=== PATIENT | male | born 1960 | race Caucasian/White ===

== ENCOUNTER 2017-11-11 19:28 | Inpatient (IN) | payer OTHER, MEDICARE ==
[~2017-11-11] VITALS: Ht 170.2 cm; Wt 169.2 kg
[~2017-11-11 19:28] MED LIST: ALBU18; SINGULAIR
[2017-11-11] MEDS ORDERED: FUROSEMIDE INJECTION 10 ML ONE (19:46)
[2017-11-11] MEDS ORDERED: methylPREDNISolone SOD SUCC 125 MG/2 ML VL ONE (19:46)
[2017-11-11] MEDS ORDERED: IPRATROPIUM BROM 0.5 MG/2.5ML INH SOL NEB ONE (20:00)
[2017-11-11] MEDS ORDERED: cefTRIAXone 1GM/10ml IVPUSH 10 ML IV ONE (20:00)
[2017-11-11] MEDS ORDERED: methylPREDNISolone SOD SUCC 125 MG/2 ML VL IV ONE (20:00)
[2017-11-11] MEDS ORDERED: ALBUTEROL SULF 2.5 MG/0.5ML(0.5%) NEB SOLN NEB ONE (20:00)
[2017-11-11] MEDS ORDERED: FUROSEMIDE 20 MG/2 ML VIAL IV ONE (20:00)
[2017-11-11] MEDS ORDERED: LABETALOL HCL 5 MG/ML ML 20ML VIAL IV ONE (20:15)
[2017-11-11 20:21] LABS: Basophils # (auto) 0.1 uL; Basophils % (auto) 0.3 % (0.0-2.0); Eosinophils # (auto) 0.3 uL; Hematocrit 45.6 % (41.0-53.0); Hemoglobin 14.4 g/dL (13.5-17.5); Lymphocytes # (auto) 2.2 uL; Lymphocytes % (auto) 13.5 % (10.0-50.0); Mean Corpuscular Hemoglobin 29.3 pg (28.0-32.0); Mean Corpuscular Hgb Conc. 31.6 g/dL (32.0-36.0); Mean Corpuscular Volume 92.6 fL (80.0-100.0); Monocytes # (auto) 2.6 uL; Monocytes % (auto) 15.8 % (0.0-12.0); Neutrophils # (auto) 11.2 uL; Neutrophils % (auto) 68.4 % (37.0-80.0); Nucleated Red Blood Cells % 0.9 %; Platelet Count (auto) 320 10^3/uL (140-450); Red Blood Cells 4.92 10^6/uL (4.5-5.90); Red Cell Distribution Width 15.5 % (11.8-14.3); White Blood Cell 16.5 10^3/uL (4.4-10.8)
[2017-11-11] MEDS: MAGNESIUM SULFATE 1GM/100ML 100 ML IV SCH ×2 (20:22→21:11)
[2017-11-11 20:35] LABS: Albumin 2.9 g/dL (3.4-5.0); Anion Gap 12 (5-15); BUN/Creatinine Ratio 16.5; Blood Urea Nitrogen 17 mg/dL (7-18); Carbon Dioxide 33 mmol/L (21-32); Chloride 97 mmol/L (98-107); GFR African American 95 mL/min; GFR Non-African American 79 mL/min; Glucose 141 mg/dL (74-106); Magnesium 2.3 mg/dL (1.6-2.6); Potassium 3.8 mmol/L (3.5-5.1); Sodium 142 mmol/L (136-145)
[2017-11-11 20:41] LABS: Alanine Aminotransferase 28 U/L (16-61); Alkaline Phosphatase 66 U/L (45-117); Aspartate Aminotransferase 31 U/L (15-37); Bilirubin, Total 0.4 mg/dL (0.2-1.0); Lactic Acid w/Reflex 5.7 mmol/L (0.4-2.0); Total Protein 8.5 g/dL (6.4-8.2)
[2017-11-11] MEDS ORDERED: PRAMIPEXOLE DIHYDROCHLORIDE MO 0.25 MG TAB PO ONE (22:00)
[2017-11-11 23:30] LABS: Urine Bacteria NONE SEEN /hpf (None Seen); Urine Blood TRACE /uL (Negative); Urine Specific Gravity 1.029 (1.001-1.035); Urine WBC 3 /hpf (0 - 3)
[2017-11-12] VITALS (11 sets, daily range): BP systolic 89–120; BP diastolic 48–69
[2017-11-12] MEDS ORDERED: IPRATROPIUM BROM 0.5 MG/2.5ML INH SOL NEB ONE
[2017-11-12] MEDS ORDERED: ALBUTEROL SULF 2.5 MG/0.5ML(0.5%) NEB SOLN NEB ONE
[2017-11-12] MEDS ORDERED: IOHEXOL 350 MG/ML 100ML IJ ONE (00:01)
[2017-11-12] MEDS ORDERED: SUCCINYLCHOLINE CHLORIDE 20 MG/ML 10ML VIAL IV ONE ×2 (04:13→06:00)
[2017-11-12] MEDS ORDERED: ETOMIDATE (2MG/ML) 20ML VIAL IV ONE ×2 (04:13→06:00)
[2017-11-12] MEDS: MIDAZOLAM DRIP 50 mg/50mL 50 ML IV SCH (04:14)
[2017-11-12] MEDS ORDERED: ROCURONIUM 10MG/ML 10ML VIAL IV ONE ×2 (04:45)
[2017-11-12] MEDS ORDERED: HYDROcodone-ACET 5/325MG TAB PO PRN (05:00)
[2017-11-12] MEDS ORDERED: IPRATROPIUM BROM 0.5 MG/2.5ML INH SOL NEB PRN (05:00)
[2017-11-12] MEDS ORDERED: NITROGLYCERIN 0.4 MG SL TAB SL PRN (05:00)
[2017-11-12] MEDS ORDERED: ONDANSETRON HCL 4 MG/2 ML VIAL IV PRN (05:00)
[2017-11-12] MEDS ORDERED: ACETAMINOPHEN 325 MG TAB PO PRN (05:00)
[2017-11-12] MEDS ORDERED: MORPHINE SULF(PF) 0.5MG/ML 10ML VIAL IV PRN (05:00)
[2017-11-12] MEDS ORDERED: ALBUTEROL SULF 2.5 MG/0.5ML(0.5%) NEB SOLN NEB PRN (05:00)
[2017-11-12] MEDS ORDERED: DEXTROSE (50%) 50ML SYRG IV PRN (05:15)
[2017-11-12] MEDS ORDERED: PROPOFOL 100 ML IV ONE (05:37)
[2017-11-12] MEDS: PROPOFOL 100 ML IV SCH (05:50)
[2017-11-12] MEDS: ACCU-CHEK COMFORT CURVE STRIP VI SCH ×3 (06:00→17:57)
[2017-11-12] MEDS: InsuLIN REG 1unit/0.01ml Soln (100units/ml) SC SCH ×3 (06:00→17:57)
[2017-11-12] MEDS ORDERED: LEVOFLOXACIN 500MG 100 ML IV ONE (06:00)
[2017-11-12] MEDS ORDERED: FUROSEMIDE 20 MG/2 ML VIAL IV SCH (06:00)
[2017-11-12 09:08] LABS: Basophils # (auto) 0 uL; Basophils % (auto) 0.1 % (0.0-2.0); Eosinophils # (auto) 0 uL; Eosinophils % (auto) 0.1 % (0.0-7.0); Hematocrit 37.4 % (41.0-53.0); Hemoglobin 12.1 g/dL (13.5-17.5); Lymphocytes # (auto) 0.7 uL; Lymphocytes % (auto) 5.8 % (10.0-50.0); Mean Corpuscular Hemoglobin 29.2 pg (28.0-32.0); Mean Corpuscular Hgb Conc. 32.3 g/dL (32.0-36.0); Mean Corpuscular Volume 90.3 fL (80.0-100.0); Monocytes % (auto) 8.2 % (0.0-12.0); Neutrophils % (auto) 85.8 % (37.0-80.0); Nucleated Red Blood Cells % 0.2 %; Platelet Count (auto) 226 10^3/uL (140-450); Red Blood Cells 4.14 10^6/uL (4.5-5.90); Red Cell Distribution Width 15.2 % (11.8-14.3); White Blood Cell 11.7 10^3/uL (4.4-10.8)
[2017-11-12 09:27] LABS: Albumin 2.2 g/dL (3.4-5.0); BUN/Creatinine Ratio 22.7; Bilirubin, Total 0.3 mg/dL (0.2-1.0); Calcium 8.3 mg/dL (8.5-10.1); Potassium 3.6 mmol/L (3.5-5.1); Total Protein 6.3 g/dL (6.4-8.2)
[2017-11-12] MEDS ORDERED: LEVOFLOXACIN 750MG 150 ML IV SCH (10:00)
[2017-11-12] MEDS: PANTOPRAZOLE 40 MG/10 ML VIAL IV SCH (10:24)
[2017-11-12] MEDS: ENOXAPARIN SOD 40 MG/0.4 ML SYRINGE SC SCH (10:24)
[2017-11-12] MEDS: methylPREDNISolone SOD SUCC 40 MG/ML VL IV SCH ×2 (14:10→21:47)
[2017-11-12] MEDS: FUROSEMIDE 40 MG/4 ML VIAL IV SCH (18:02)
[2017-11-12] MEDS ORDERED: ATORVASTATIN 20 MG TAB PO SCH (22:00)
[2017-11-12] MEDS ORDERED: POTASSIUM CHL 10% (20 MEQ/15ML) 15ml ORAL SOLN GT SCH (22:00)
[2017-11-12] MEDS: BUDESONIDE (INHALATION) 0.5 MG/2 ML NEB NEB SCH (22:05)
[2017-11-12] MEDS ORDERED: ACETAMINOPHEN 650 mg PER 20 mL UD ONE (23:47)
[2017-11-13] VITALS (11 sets, daily range): BP systolic 109–157; BP diastolic 64–94
[2017-11-13] MEDS: ACCU-CHEK COMFORT CURVE STRIP VI SCH ×4 (00:07→17:59)
[2017-11-13] MEDS: PROPOFOL 100 ML IV SCH ×3 (00:44→14:03)
[2017-11-13] MEDS: MIDAZOLAM DRIP 50 mg/50mL 50 ML IV SCH ×3 (04:14→18:26)
[2017-11-13] MEDS: InsuLIN REG 1unit/0.01ml Soln (100units/ml) SC SCH ×4 (05:48→18:23)
[2017-11-13 06:07] LABS: Basophils # (auto) 0 uL; Basophils % (auto) 0.1 % (0.0-2.0); Eosinophils # (auto) 0 uL; Eosinophils % (auto) 0.1 % (0.0-7.0); Hematocrit 35.8 % (41.0-53.0); Hemoglobin 11.6 g/dL (13.5-17.5); Lymphocytes # (auto) 0.9 uL; Mean Corpuscular Hemoglobin 29.1 pg (28.0-32.0); Mean Corpuscular Hgb Conc. 32.4 g/dL (32.0-36.0); Mean Corpuscular Volume 89.7 fL (80.0-100.0); Monocytes % (auto) 8.6 % (0.0-12.0); Neutrophils # (auto) 9.5 uL; Neutrophils % (auto) 83.2 % (37.0-80.0); Nucleated Red Blood Cells % 0.2 %; Platelet Count (auto) 235 10^3/uL (140-450); Red Cell Distribution Width 15.1 % (11.8-14.3); White Blood Cell 11.4 10^3/uL (4.4-10.8)
[2017-11-13] MEDS: FUROSEMIDE 40 MG/4 ML VIAL IV SCH ×2 (06:10→18:25)
[2017-11-13] MEDS: methylPREDNISolone SOD SUCC 40 MG/ML VL IV SCH ×2 (06:10→14:06)
[2017-11-13] MEDS: LEVOFLOXACIN 750MG 150 ML IV SCH ×2 (06:10→10:10)
[2017-11-13 06:38] LABS: Albumin 2.1 g/dL (3.4-5.0); BUN/Creatinine Ratio 29.3; Calcium 8.1 mg/dL (8.5-10.1); Potassium 3.4 mmol/L (3.5-5.1)
[2017-11-13 06:40] LABS: Bilirubin, Total 0.3 mg/dL (0.2-1.0); Total Protein 6.2 g/dL (6.4-8.2)
[2017-11-13] MEDS ORDERED: LABETALOL HCL 5 MG/ML ML 20ML VIAL IV PRN ×2 (09:30)
[2017-11-13] MEDS: BUDESONIDE (INHALATION) 0.5 MG/2 ML NEB NEB SCH ×2 (09:50→18:36)
[2017-11-13] MEDS ORDERED: NYSTATIN TOPICAL POWDER 15GM TOP SCH (10:00)
[2017-11-13] MEDS ORDERED: POTASSIUM CHL 10% (20 MEQ/15ML) 15ml ORAL SOLN GT SCH (10:00)
[2017-11-13 10:16] LABS: INR 1.05 (0.9-1.15); Partial Thromboplastin Time 25.1 sec (23.78-33.04); Prothrombin Time 11.2 sec (9.27-12.13)
[2017-11-13] MEDS: PANTOPRAZOLE 40 MG/10 ML VIAL IV SCH (11:56)
[2017-11-13] MEDS: ENOXAPARIN SOD 40 MG/0.4 ML SYRINGE SC SCH (11:57)
== END 2017-11-13 19:36 | disposition short-term general hospital (02) | DRG 208 ==
LOC: EDBD 19:28 → ER 19:28 → TELE 19:29
PROVIDERS: ADMIT Nurse Practitioner; ATTEND Internal Medicine
PROC: 5A09357 Assistance with Respiratory Ventilation, Less than 24 Consecutive Hours, Continuous Positive Airway Pressure (ICD-10-PCS; 2017-11-11)
PROC: 5A1935Z Respiratory Ventilation, Less than 24 Consecutive Hours (ICD-10-PCS; principal; 2017-11-12)
PROC: 0BH17EZ Insertion of Endotracheal Airway into Trachea, Via Natural or Artificial Opening (ICD-10-PCS; 2017-11-12)
DX: J96.22 Acute and chronic respiratory failure with hypercapnia (principal); I50.33 Acute on chronic diastolic (congestive) heart failure; J18.9 Pneumonia, unspecified organism; E43 Unspecified severe protein-calorie malnutrition; E87.2 Acidosis; J44.1 Chronic obstructive pulmonary disease with (acute) exacerbation; E66.2 Morbid (severe) obesity with alveolar hypoventilation; J44.0 Chronic obstructive pulmonary disease with (acute) lower respiratory infection; Z68.43 Body mass index [BMI] 50.0-59.9, adult; I11.0 Hypertensive heart disease with heart failure; E78.5 Hyperlipidemia, unspecified; D72.829 Elevated white blood cell count, unspecified; E11.9 Type 2 diabetes mellitus without complications
CPT/HCPCS: 36415; 36600; 51702; 71045; 71275; 80053; 80061; 81001; 82805; 82962; 83036; 83605; 83735; 83880; 84484; 85025; 85379; 85610; 85730; 87040; 87070; 87077; 87186; 87205; 93005; 93306; 93970; 94002; 94003; 94640; 94644; 94660; 96365; 96375; 99291; C9113; J0330; J1815; J1956; J2250; J2704

== ENCOUNTER 2018-11-18 12:31 | Inpatient (IN) | payer MEDICARE, OTHER ==
[~2018-11-18] VITALS: Ht 167.6 cm; Wt 158.8 kg
[2018-11-18] MEDS ORDERED: FUROSEMIDE 40 MG/4 ML VIAL IV ONE (12:45)
[2018-11-18 13:28] LABS: Anion Gap 1 (5-15); Blood Urea Nitrogen 23 mg/dL (7-18); Calcium 8.7 mg/dL (8.5-10.1); Chloride 98 mmol/L (98-107); Glucose 165 mg/dL (74-106); Magnesium 2.4 mg/dL (1.6-2.6); Sodium 141 mmol/L (136-145)
[2018-11-18 13:33] LABS: Alanine Aminotransferase 40 U/L (16-61); Alkaline Phosphatase 51 U/L (45-117); Aspartate Aminotransferase 19 U/L (15-37); BUN/Creatinine Ratio 29.9; Bilirubin, Total 0.5 mg/dL (0.2-1.0); GFR African American 133 mL/min; GFR Non-African American 110 mL/min; Total Protein 7.4 g/dL (6.4-8.2)
[2018-11-18 13:37] LABS: Carbon Dioxide 42 mmol/L (21-32)
[2018-11-18 13:40] LABS: Basophils # (auto) 0.1 uL; Eosinophils # (auto) 0.2 uL; Lymphocytes # (auto) 1.1 uL; Monocytes # (auto) 1.4 uL; Neutrophils # (auto) 7.9 uL; White Blood Cell 10.7 10^3/uL (4.4-10.8)
[2018-11-18 13:42] LABS: Basophils % (auto) 0.7 % (0.0-2.0); Hematocrit 45.8 % (41.0-53.0); Hemoglobin 14.3 g/dL (13.5-17.5); Lymphocytes % (auto) 10.3 % (10.0-50.0); Mean Corpuscular Hemoglobin 28.1 pg (28.0-32.0); Mean Corpuscular Hgb Conc. 31.2 g/dL (32.0-36.0); Mean Corpuscular Volume 90.2 fL (80.0-100.0); Nucleated Red Blood Cells % 0.3 %; Platelet Count (auto) 179 10^3/uL (140-450); Red Blood Cells 5.08 10^6/uL (4.5-5.90); Red Cell Distribution Width 18.2 % (11.8-14.3)
[2018-11-18] MEDS ORDERED: methylPREDNISolone SOD SUCC 125 MG/2 ML VL IV ONE (14:30)
[2018-11-18 14:57] VITALS: BP 113/70
[2018-11-18] MEDS ORDERED: NITROGLYCERIN 0.4 MG SL TAB SL PRN (15:00)
[2018-11-18] MEDS ORDERED: DEXTROSE (50%) 50ML SYRG IV PRN (15:00)
[2018-11-18] MEDS ORDERED: MORPHINE SULF INJ 2 MG/ML SYRINGE 1ML IV PRN ×2 (15:00)
[2018-11-18] MEDS ORDERED: ONDANSETRON HCL 4 MG/2 ML VIAL IV PRN (15:00)
[2018-11-18] MEDS ORDERED: ACETAMINOPHEN 500 MG TAB PO PRN (15:00)
[2018-11-18] MEDS: cefTRIAXone 1GM/50ML D5W 50 ML IV SCH (15:37)
[2018-11-18] MEDS: HYDROcodone-ACET 5/325MG TAB PO PRN (15:39)
[2018-11-18] MEDS: CLINDAMYCIN 300MG IV 50 ML IV SCH (17:24)
[2018-11-18] MEDS: InsuLIN REG 1unit/0.01ml Soln (100units/ml) SC SCH ×2 (17:41→22:00)
[2018-11-18] MEDS: ACCU-CHEK COMFORT CURVE STRIP VI SCH ×2 (17:42→22:00)
[2018-11-18 18:20] VITALS: BP 112/29
[2018-11-18] MEDS: FUROSEMIDE 40 MG/4 ML VIAL IV SCH (18:20)
[2018-11-18] MEDS: BUDESONIDE (INHALATION) 0.5 MG/2 ML NEB NEB SCH (18:27)
[2018-11-18] MEDS: ALBUTEROL SULF 2.5 MG/0.5ML(0.5%) NEB SOLN NEB SCH (18:27)
[2018-11-18] MEDS: IPRATROPIUM BROM 0.5 MG/2.5ML INH SOL NEB SCH (18:27)
[2018-11-18 18:50] VITALS: BP 96/54
[2018-11-18 20:04] VITALS: BP 176/131
[2018-11-18] MEDS ORDERED: MONTELUKAST SODIUM 10 MG TAB PO SCH (22:00)
[2018-11-19] VITALS (7 sets, daily range): BP systolic 119–150; BP diastolic 59–90
[2018-11-19] MEDS: CLINDAMYCIN 300MG IV 50 ML IV SCH ×3 (01:23→18:03)
[2018-11-19 05:32] LABS: Basophils # (auto) 0 uL; Basophils % (auto) 0.2 % (0.0-2.0); Eosinophils # (auto) 0 uL; Eosinophils % (auto) 0.1 % (0.0-7.0); Hematocrit 42.6 % (41.0-53.0); Hemoglobin 13.4 g/dL (13.5-17.5); Lymphocytes # (auto) 0.5 uL; Lymphocytes % (auto) 4.2 % (10.0-50.0); Mean Corpuscular Hemoglobin 28.2 pg (28.0-32.0); Mean Corpuscular Hgb Conc. 31.4 g/dL (32.0-36.0); Mean Corpuscular Volume 89.9 fL (80.0-100.0); Monocytes # (auto) 1.1 uL; Monocytes % (auto) 9.3 % (0.0-12.0); Neutrophils # (auto) 10.2 uL; Neutrophils % (auto) 86.2 % (37.0-80.0); Nucleated Red Blood Cells % 0.1 %; Platelet Count (auto) 183 10^3/uL (140-450); Red Blood Cells 4.74 10^6/uL (4.5-5.90); Red Cell Distribution Width 17.9 % (11.8-14.3); White Blood Cell 11.8 10^3/uL (4.4-10.8)
[2018-11-19] MEDS: FUROSEMIDE 40 MG/4 ML VIAL IV SCH ×2 (06:00→18:07)
[2018-11-19 06:04] LABS: BUN/Creatinine Ratio 26.3; Calcium 8.1 mg/dL (8.5-10.1); Potassium 3.8 mmol/L (3.5-5.1)
[2018-11-19] MEDS: IPRATROPIUM BROM 0.5 MG/2.5ML INH SOL NEB SCH ×3 (06:32→18:40)
[2018-11-19] MEDS: ALBUTEROL SULF 2.5 MG/0.5ML(0.5%) NEB SOLN NEB SCH ×3 (06:32→18:40)
[2018-11-19] MEDS: BUDESONIDE (INHALATION) 0.5 MG/2 ML NEB NEB SCH ×2 (06:32→18:40)
[2018-11-19] MEDS: ACCU-CHEK COMFORT CURVE STRIP VI SCH ×3 (06:45→18:03)
[2018-11-19] MEDS: InsuLIN REG 1unit/0.01ml Soln (100units/ml) SC SCH ×3 (06:45→18:06)
--- NOTE | 2018-11-19 07:35 | NUR ---
DECREASED OXYMIZER TO 5L PER ABG RESULTS
--- NOTE | 2018-11-19 08:24 | NUR ---
I faxed clinical information to [facility] including ER notes, H&P, xrays, labs, vitals and medication list.
--- NOTE | 2018-11-19 08:29 | NUR ---
REPORTED ABG RESULTS TO BILLY HUERTA AT THIS TIME. ORDERS ARE TO KEEP SPO2 ABOVE 90%. PT CURRENTLY OFF BIPAP ON 5L OXYMIZER. WILL CONTINUE TO MONITOR PT.
[2018-11-19] MEDS: cefTRIAXone 1GM/50ML D5W 50 ML IV SCH (09:18)
[2018-11-19] MEDS ORDERED: ENOXAPARIN SOD 40 MG/0.4 ML SYRINGE SC SCH (10:00)
[2018-11-19] MEDS ORDERED: FAMOTIDINE 20 MG TAB PO SCH (10:00)
--- NOTE | 2018-11-19 10:45 | NUR ---
Transfer order faxed to [facility] [phone].
[2018-11-19] MEDS: HYDROcodone-ACET 5/325MG TAB PO PRN (11:21)
--- NOTE | 2018-11-19 11:40 | NUR ---
WOUND CARE NOTE: Wound care in to see patient per wound care request regarding wounds that are noted present on admission. Lakshmi nurse took photograph of patient's wounds upon admission for reference. Patient is 58 years old male with admitting diagnosis of Acute on Chronic Hypercapnic. Patient is resting in ER bed#15. He's awake, alert and fully oriented. Patient is in no stated pain at this time. He's able to move, turn and reposition self. His Simone score is 16. Noted patient's bilateral lower extremity has edema, erythema with dry intact scabbed wounds to L and R farmer. Cleansed patient's BLE with mild soap and water, patted dry, applied Hydraguard cream, wrapped with Kerlix and ADAIR wrap. Multi open and scabbed wounds noted on patient's mons pubis. Wounds measuring 1x1cm red and others are scabbed, no drainage/odor noted,periwound is bright red. Two open full thickness wounds also noted on patient's L lower abdomen measuring 1x1.5cm no measurable depth. Wound beds are red with yellow slough, karla wound is bright red, minimal serous drainage noted, no odor noted. Patient's at bedside reported that wounds comes and goes for few months now. They're thinking its from moisture due to patient's body habitus. Patient is obese and has large abdominal pannus. Cleansed patient's mons pubis and Lt lower abdominal wounds with wound cleanser, patted dry with gauze, applied Thera honey gauze to pubis wounds and covered with transparent dressing (Tegaderm). Applied Thera honey gel to L abdominal wound and covered with Opti foam gentle dressing. Patient turned to his Rt side to visualize the sacral and back, no other wound noted, no pressure injury noted. Applied dry, clean linen to lower abdominal fold to help wick moisture. Patient and family wound care/skin care education given,verbalized understanding. Patient tolerated well. Repositioned for comfort. Patient's and nurse at bedside. RECOMMENDATION: Daily/PRN dressing change to BLE, EOD/PRN dressing change to mons pubis and abdominal wounds per MD order, dietary consult, redistribute pressure points with pillows, elevate BLE on pillows, continue monitoring by wound care while patient is hospitalized. Addendum: 11/19/18 at 1438 by Caroline Jeffries RN Amended: Aury added.
--- NOTE | 2018-11-19 13:04 | NUR ---
I spoke with [facility] Corrugated Fastener Driver Flo [phone]-I let him know that patient is agreeable to be transferred to [facility]-he is working on it and will give me a call back. I provided him with contact information for Dr. Bruno as well as the ER nurse's station.
[2018-11-19] MEDS ORDERED: IOHEXOL 350 MG/ML 100ML IJ ONE (14:58)
[2018-11-19] MEDS ORDERED: PRA25T PO ×2 (15:56)
[2018-11-19] MEDS ORDERED: ATEN-60 PO (16:16)
[2018-11-19] MEDS ORDERED: PROP60CA34 PO (16:16)
[2018-11-19] MEDS ORDERED: ATOR20TA PO (16:17)
[2018-11-19] MEDS ORDERED: LISI10TA6 PO (16:18)
[2018-11-19] MEDS ORDERED: ACET250T3 PO (16:19)
[2018-11-19] MEDS ORDERED: FURO40TA4 PO (16:20)
[2018-11-19] MEDS ORDERED: POTA1TAB64 PO (16:22)
[2018-11-19] MEDS ORDERED: RIVA20TA PO (16:22)
[2018-11-19] MEDS ORDERED: DEXTROSE (50%) 50ML SYRG IV PRN (18:30)
[2018-11-19] MEDS ORDERED: ACCU-CHEK COMFORT CURVE STRIP VI SCH (22:00)
[2018-11-19] MEDS ORDERED: methylPREDNISolone SOD SUCC 125 MG/2 ML VL IV SCH (22:00)
[2018-11-19] MEDS ORDERED: InsuLIN REG 1unit/0.01ml Soln (100units/ml) SC SCH (22:00)
[2018-11-20] MEDS ORDERED: InsuLIN REG 1unit/0.01ml Soln (100units/ml) SC SCH (07:00)
[2018-11-20] MEDS ORDERED: RIVAROXABAN 20 MG TAB PO SCH (18:00)
== END 2018-11-19 21:18 | disposition short-term general hospital (02) | DRG 291 ==
LOC: EDBD 12:31 → ER 12:31 → TELE 15:02
PROVIDERS: ADMIT Nurse Practitioner Acute Care; ATTEND Internal Medicine
PROC: 5A09357 Assistance with Respiratory Ventilation, Less than 24 Consecutive Hours, Continuous Positive Airway Pressure (ICD-10-PCS; principal; 2018-11-18)
PROC: 5A09357 Assistance with Respiratory Ventilation, Less than 24 Consecutive Hours, Continuous Positive Airway Pressure (ICD-10-PCS; 2018-11-19)
DX: I11.0 Hypertensive heart disease with heart failure (principal); J96.21 Acute and chronic respiratory failure with hypoxia; J96.22 Acute and chronic respiratory failure with hypercapnia; E44.0 Moderate protein-calorie malnutrition; L03.115 Cellulitis of right lower limb; L03.116 Cellulitis of left lower limb; J44.1 Chronic obstructive pulmonary disease with (acute) exacerbation; Z68.43 Body mass index [BMI] 50.0-59.9, adult; I50.33 Acute on chronic diastolic (congestive) heart failure; E66.01 Morbid (severe) obesity due to excess calories; E11.9 Type 2 diabetes mellitus without complications; Z86.718 Personal history of other venous thrombosis and embolism; Z99.81 Dependence on supplemental oxygen
CPT/HCPCS: 36415; 36600; 51702; 71045; 80048; 80053; 82805; 82962; 83036; 83605; 83735; 83880; 84484; 85025; 87040; 87077; 87186; 87205; 93005; 94640; 94660; 94761; 96374; 96375; 99291; G0378; J0696; J1815; J3490

== ENCOUNTER 2019-01-28 23:10 | Inpatient (IN) | payer OTHER, MEDICARE ==
[~2019-01-28] VITALS: Ht 170.2 cm; Wt 145.4 kg
[~2019-01-28 23:10] MED LIST changes: +ACET250T3 PO; +ATEN-60 PO; +ATOR20TA PO; +FURO40TA4 PO; +LISI10TA6 PO; +POTA1TAB64 PO; +PRA25T PO; +PROP60CA34 PO; +RIVA20TA PO
[2019-01-29] VITALS (61 sets, daily range): BP systolic 81–154; BP diastolic 30–88
[2019-01-29 00:07] LABS: Eosinophils # (auto) 0.4 uL; Monocytes # (auto) 1.2 uL; Nucleated Red Blood Cells % 0.4 %
[2019-01-29 00:11] LABS: Basophils # (auto) 0 uL; Basophils % (auto) 0.5 % (0.0-2.0); Hematocrit 42.8 % (41.0-53.0); Hemoglobin 13.1 g/dL (13.5-17.5); Lymphocytes # (auto) 1.1 uL; Lymphocytes % (auto) 11.4 % (10.0-50.0); Mean Corpuscular Hemoglobin 26.8 pg (28.0-32.0); Mean Corpuscular Hgb Conc. 30.7 g/dL (32.0-36.0); Mean Corpuscular Volume 87.3 fL (80.0-100.0); Neutrophils # (auto) 6.8 uL; Neutrophils % (auto) 71.1 % (37.0-80.0); Platelet Count (auto) 241 10^3/uL (140-450); Red Cell Distribution Width 17.8 % (11.8-14.3); White Blood Cell 9.5 10^3/uL (4.4-10.8)
[2019-01-29] MEDS ORDERED: LORazepam 2MG/ML-1ML VIAL IV ONE ×2 (00:15→01:00)
[2019-01-29 00:27] LABS: Albumin 2.8 g/dL (3.4-5.0); Anion Gap 3 (5-15); BUN/Creatinine Ratio 32.6; Blood Urea Nitrogen 29 mg/dL (7-18); Calcium 8.8 mg/dL (8.5-10.1); Carbon Dioxide 36 mmol/L (21-32); Chloride 101 mmol/L (98-107); GFR African American 112 mL/min; GFR Non-African American 93 mL/min; Glucose 138 mg/dL (74-106); Magnesium 2.5 mg/dL (1.6-2.6); Potassium 4.6 mmol/L (3.5-5.1); Sodium 140 mmol/L (136-145)
[2019-01-29 00:33] LABS: Alanine Aminotransferase 25 U/L (16-61); Alkaline Phosphatase 48 U/L (45-117); Aspartate Aminotransferase 15 U/L (15-37); Bilirubin, Total 0.3 mg/dL (0.2-1.0); Total Protein 7.3 g/dL (6.4-8.2)
[2019-01-29] MEDS ORDERED: NOREPINEPHRINE 8 MG/250ML KIT 250 ML IV STA (01:28)
[2019-01-29] MEDS ORDERED: SUCCINYLCHOLINE CHLORIDE 20 MG/ML 10ML VIAL IV ONE ×2 (01:30→02:00)
[2019-01-29] MEDS ORDERED: ETOMIDATE (2MG/ML) 20ML VIAL IV ONE ×2 (01:30→02:00)
[2019-01-29] MEDS ORDERED: methylPREDNISolone SOD SUCC 125 MG/2 ML VL IV ONE (01:30)
[2019-01-29] MEDS ORDERED: LEVOFLOXACIN 750MG 150 ML IV ONE (01:45)
[2019-01-29] MEDS ORDERED: VANCOMYCIN 1GM/250ML 250 ML IV ONE (01:45)
[2019-01-29] MEDS ORDERED: SODIUM CHLORIDE 0.9% 4,100 ML IV ONE (01:45)
[2019-01-29] MEDS: NOREPINEPHRINE 8 MG/250ML KIT 250 ML IV SCH ×2 (02:14→23:35)
[2019-01-29] MEDS: MIDAZOLAM DRIP 50 mg/50mL 50 ML IV SCH ×4 (02:14→22:45)
[2019-01-29] MEDS ORDERED: SODIUM CHLORIDE 0.9% 1,000 ML IV ONE (02:30)
[2019-01-29] MEDS ORDERED: fentaNYL Drip 2500mCg/250mlNS 250 ML IV ONE (02:38)
[2019-01-29] MEDS: fentaNYL Drip 2500mCg/250mlNS 250 ML IV SCH ×2 (02:43→14:56)
[2019-01-29 03:27] LABS: Urine Bacteria NONE SEEN /hpf (None Seen); Urine Blood Negative /uL (Negative); Urine Specific Gravity 1.026 (1.001-1.035); Urine WBC 1 /hpf (0 - 3)
[2019-01-29 03:39] LABS: INR 0.98 (0.9-1.15); Partial Thromboplastin Time 25.1 sec (23.64-32.05)
[2019-01-29] MEDS ORDERED: hydrALAZINE HCL 20 MG/ML VL IV PRN (06:00)
[2019-01-29] MEDS ORDERED: NITROGLYCERIN 0.4 MG SL TAB SL PRN (06:00)
[2019-01-29] MEDS ORDERED: SODIUM CHLORIDE 0.9% 1,000 ML IV SCH (06:00)
[2019-01-29] MEDS ORDERED: DEXTROSE (50%) 50ML SYRG IV PRN (06:00)
[2019-01-29] MEDS ORDERED: VANCOMYCIN PER PHARMACY 0 MG IV SCH (06:00)
[2019-01-29] MEDS ORDERED: MORPHINE SULF INJ 2 MG/ML SYRINGE 1ML IV PRN (06:00)
[2019-01-29] MEDS ORDERED: ACETAMINOPHEN 325 MG TAB PO PRN (06:00)
[2019-01-29] MEDS ORDERED: ONDANSETRON HCL 4 MG/2 ML VIAL IV PRN (06:00)
[2019-01-29] MEDS: ACCU-CHEK COMFORT CURVE STRIP VI SCH ×4 (07:02→23:35)
[2019-01-29] MEDS: IPRATROPIUM BROM 0.5 MG/2.5ML INH SOL NEB SCH ×4 (07:04→22:15)
[2019-01-29] MEDS: ALBUTEROL SULF 2.5 MG/0.5ML(0.5%) NEB SOLN NEB SCH ×3 (07:04→22:15)
[2019-01-29] MEDS: InsuLIN REG 1unit/0.01ml Soln (100units/ml) SC SCH ×4 (07:07→23:35)
--- NOTE | 2019-01-29 08:45 | NUR ---
RT NOTE: PT. TRANSFERRED TO ICU WITHOUT INCIDENT WITH TAMANNA CASAS AND TAMANNA HANKS. PT. BAGGED WITH 100% O2 AND DESIGN TEACHER IN PLACE. PT. PLACED ON TYLER VENT #12 WITH ORDER SETTINGS.
--- NOTE | 2019-01-29 09:00 | NUR ---
Admit to ICU from ER on vent MARCE DONAHUE admitted to ICU via gurney on scale balancer, intubated and being bagged by Respiratory Therapist. Patient transferred to bed, connected to mechanical ventilator by therapist, GIACOMO at bedside. Physical assessment performed and documented. Patient connected to ICU monitoring, weighed by bedscale, oriented to Najma Marcano, primary RN, unit, ventilator and sedation. Comfort measures provided, wound care pictures taken to left abdominal pressure area, bilateral lower extremity redness and buttock, optifoam applied. Fall precautions in place. Will complete admission documentation with information obtained from medical records at this time.
--- NOTE | 2019-01-29 09:49 | NUR ---
US TECH AT BEDSIDE
[2019-01-29] MEDS ORDERED: ENOXAPARIN SOD 40 MG/0.4 ML SYRINGE SC SCH (10:00)
[2019-01-29] MEDS: ATENOLOL 25 MG TAB PO SCH (10:00)
--- NOTE | 2019-01-29 10:56 | NUR ---
Dr. Henry at bedside: Echo and CT angio ordered. Spoke with Dr. Johnson he will see patient tomorrow morning.
--- NOTE | 2019-01-29 11:45 | NUR ---
Patient received from [facility] patients.
--- NOTE | 2019-01-29 11:45 | NUR ---
ENDORSED CONTINUED CARE TO TAMANNA GOLDBERG.
[2019-01-29] MEDS ORDERED: IOHEXOL 350 MG/ML 100ML IJ ONE (12:01)
--- NOTE | 2019-01-29 12:30 | NUR ---
Unable to do CT angio patient too wide to fit -per radiology. Addendum: 01/29/19 at 1244 by Renetta Sheppard RN VQ scan ordered -if able, left message to nuc med. Addendum: 01/29/19 at 1724 by Renetta Sheppard RN Can't be intubate for VQ scan.
[2019-01-29] MEDS: FUROSEMIDE 40 MG TAB PO SCH (12:34)
[2019-01-29] MEDS: FAMOTIDINE INJECTION 40 MG in SODIUM CHL 0.9% 100 ML IV SCH (12:35)
--- NOTE | 2019-01-29 14:50 | NUR ---
WOUND CARE NOTE: Wound care consult from nursing. Patient is a 58 yo male admitted for respiratory failure. Patient with a history of hyperlipidemia, hypertension, COPD, diabetes and CHF. Patient is currently intubated and sedated. No signs or symptoms of pain. Patient is morbidly obese and has moisture dermatitis to abdominal skin folds and panus. Patient has unroofed blisters to left panus that each measure ~5x3cm. Patient has erythema to bilateral lower extremities with intact skin. Sacrum is red blanching and intact. RECOMMENDATIONS: Dietary consult; Turn q2hrs; Nursing to cleanse abdominal folds with mild soap and water, pat dry, cover unroofed blisters with OPTIFOAM GENTLE, place pillow cases between abdominal fold to help wick moisture, change PRN soiling; Nursing to cleanse buttocks with mild soap and water, pat dry, apply ZGUARD prn soiling, may apply sacral OPTIFOAM GENTLE to prevent friction shear injuries changing every three days/PRN soiling; wound care team to continue to follow while intubated and Simone <18. Addendum: 01/29/19 at 1737 by MAVERICK YANG RN Amended: Links added.
[2019-01-29] MEDS: VANCOMYCIN 1,500 MG in D5W 5% 250 ML IV SCH (15:20)
--- NOTE | 2019-01-29 16:40 | NUR ---
Dr. Sims at bedside: Do not transfer to [facility] to [facility] per Dr. Sims.
--- NOTE | 2019-01-29 17:00 | NUR ---
to bring med req tomorrow.
[2019-01-29] MEDS ORDERED: Glucerna 1.2 Cal 1Liter BOTTLE GT SCH (17:30)
[2019-01-29] MEDS: RIVAROXABAN 20 MG TAB PO SCH (17:47)
[2019-01-29] MEDS: methylPREDNISolone SOD SUCC 125 MG/2 ML VL IV SCH ×2 (17:53→23:35)
[2019-01-29] MEDS ORDERED: ALBUTEROL SULF 2.5 MG/0.5ML(0.5%) NEB SOLN NEB SCH (18:00)
[2019-01-29] MEDS ORDERED: methylPREDNISolone SOD SUCC 125 MG/2 ML VL IV SCH (18:00)
--- NOTE | 2019-01-29 18:38 | NUR ---
Respiratory note: FIO2 INCREASED TO 50% POST ABG RESULTS, WILL CONTINUE TO MONITOR.
--- NOTE | 2019-01-29 18:39 | NUR ---
PHONE CALL RECEIVED FROM PULMONOLOGY DR KEEN UPDATED ON PATIENT'S STATUS, ORDERS RECEIVED. ASHLYN NOLEN. UPDATED ON ORDERS.
--- NOTE | 2019-01-29 18:51 | NUR ---
Per Dr. Neelam LINK now and call with results: Results given and ordered to keep on same vent settings, titrate FI02, and keep sats >92%.
--- NOTE | 2019-01-29 18:57 | NUR ---
Endorsed care to TAMANNA Daugherty.
--- NOTE | 2019-01-29 19:30 | NUR ---
REPORT RECEIVED, ASSUMED CARE.
[2019-01-29] MEDS: ATORVASTATIN 20 MG TAB PO SCH (20:45)
[2019-01-30] VITALS (101 sets, daily range): BP systolic 83–148; BP diastolic 40–105
--- NOTE | 2019-01-30 00:59 | NUR ---
PATIENT STATUS PATIENT AWAKE, ALERT AND ATTEMPTING TO PULL OFF SOFT MITTENS. PATIENT RE-ORIENTED TO PLACE, TIME AND SITUATION. PATIENT FOLLOWS COMMANDS AND AFTER A SHORT TIME FALLS BACK TO SLEEP Addendum: 02/01/19 at 0506 by Sirena Foster RN DATE SHOULD BE 01/31/19
--- NOTE | 2019-01-30 02:01 | NUR ---
FEEDINGS STOPPED AROUND MIDNIGHT DUE TO PT 67ML OF FEEDINGS INFUSED, PT HAD APPROXIMATELY 60ML OF RESIDUAL. RECHECKED RESIDUAL NOW, PT HAS APPROXIMATELY 100ML OF RESIDUAL WITH NO INFUSION. WILL KEEP FEEDINGS OFF AND GIVE IN REPORT.
[2019-01-30] MEDS: ALBUTEROL SULF 2.5 MG/0.5ML(0.5%) NEB SOLN NEB SCH ×6 (02:18→22:15)
[2019-01-30] MEDS: IPRATROPIUM BROM 0.5 MG/2.5ML INH SOL NEB SCH ×6 (02:18→22:15)
[2019-01-30] MEDS: MIDAZOLAM DRIP 50 mg/50mL 50 ML IV SCH ×6 (03:00→22:09)
[2019-01-30] MEDS: VANCOMYCIN 1,500 MG in D5W 5% 250 ML IV SCH ×2 (03:14→15:20)
[2019-01-30 03:54] LABS: Basophils # (auto) 0 uL; Basophils % (auto) 0.2 % (0.0-2.0); Eosinophils # (auto) 0 uL; Hematocrit 41.5 % (41.0-53.0); Hemoglobin 13.1 g/dL (13.5-17.5); Lymphocytes # (auto) 0.6 uL; Lymphocytes % (auto) 6.8 % (10.0-50.0); Mean Corpuscular Hgb Conc. 31.6 g/dL (32.0-36.0); Mean Corpuscular Volume 85.6 fL (80.0-100.0); Monocytes # (auto) 0.2 uL; Monocytes % (auto) 2.4 % (0.0-12.0); Neutrophils # (auto) 7.5 uL; Neutrophils % (auto) 90.6 % (37.0-80.0); Nucleated Red Blood Cells % 0.2 %; Platelet Count (auto) 217 10^3/uL (140-450); Red Blood Cells 4.85 10^6/uL (4.5-5.90); White Blood Cell 8.3 10^3/uL (4.4-10.8)
[2019-01-30 04:08] LABS: Potassium 3.9 mmol/L (3.5-5.1)
--- NOTE | 2019-01-30 04:10 | NUR ---
POST TURNING PT TO THE LEFT BP DROPPED, LEVOPHED GTT STARTED TO MAINTAIN MAP AND SBP PER MD ORDER.
[2019-01-30 04:16] LABS: Albumin 2.4 g/dL (3.4-5.0); BUN/Creatinine Ratio 27.7; Calcium 8.3 mg/dL (8.5-10.1)
[2019-01-30 04:19] LABS: Bilirubin, Total 0.4 mg/dL (0.2-1.0); Total Protein 6.3 g/dL (6.4-8.2)
[2019-01-30] MEDS: ACCU-CHEK COMFORT CURVE STRIP VI SCH ×3 (05:24→17:41)
[2019-01-30] MEDS: methylPREDNISolone SOD SUCC 125 MG/2 ML VL IV SCH ×3 (05:24→17:40)
[2019-01-30] MEDS: InsuLIN REG 1unit/0.01ml Soln (100units/ml) SC SCH ×3 (05:24→17:45)
--- NOTE | 2019-01-30 07:00 | NUR ---
Opening shift note: Report received from TAMANNA Daugherty. Patient now on levophed, labile blood pressure (on 2mcg). Continues on sedation. See Interventions for assessment details.
--- NOTE | 2019-01-30 08:00 | NUR ---
Discontinued peripheral IV's.
[2019-01-30] MEDS: fentaNYL Drip 2500mCg/250mlNS 250 ML IV SCH ×2 (08:42→22:08)
[2019-01-30] MEDS ORDERED: cefTRIAXone 1GM/50ML D5W 50 ML IV SCH (09:00)
[2019-01-30] MEDS ORDERED: LEVOFLOXACIN 500MG 100 ML IV SCH (10:00)
[2019-01-30] MEDS ORDERED: AZITHROMYCIN 500MG/ 250ML 250 ML IV SCH (10:00)
[2019-01-30] MEDS: ATENOLOL 25 MG TAB PO SCH (10:00)
[2019-01-30] MEDS: FAMOTIDINE INJECTION 40 MG in SODIUM CHL 0.9% 100 ML IV SCH (10:07)
[2019-01-30] MEDS: FUROSEMIDE 40 MG TAB PO SCH (10:08)
--- NOTE | 2019-01-30 10:30 | NUR ---
Dr Sims at bedside: Assessed patient at bedside.
[2019-01-30] MEDS ORDERED: FUROSEMIDE 40 MG/4 ML VIAL IV ONE (11:00)
--- NOTE | 2019-01-30 11:00 | NUR ---
Dr. Henry at bedside: Start TPN since patient not tolerating Tube feeding. Continue on Xarelto. Spoke with Yoandy from [place].
--- NOTE | 2019-01-30 11:18 | NUR ---
NUTRITION CONSULT/ASSESSMENT NOTES Please refer to link notes of nutrition screen form filed under the intervention section of the plan of care for further details. Est. Needs: 2000 kcal to 2500 kcal (12-15 kcal/kgBW), 80 gms to 107 gms pro (1.2-1.6 gms/kgIBW: 67 kg). Will continue to monitor pertinent labs and reassess nutrient need prn Thank you for this consult. Addendum: 01/30/19 at [address] Amended: Links added.
--- NOTE | 2019-01-30 11:20 | NUR ---
Spoke with Yoandy from [place]; Will call me back at 1500 if patient continues on same or lower FI02 and continues of pressors- then patient can transfer to [place].
[2019-01-30] MEDS ORDERED: TPN PER PHARMACY 0 ML IV SCH (11:30)
--- NOTE | 2019-01-30 12:00 | NUR ---
Insulin held per Dr. Henry- wait until on TPN.
--- NOTE | 2019-01-30 12:28 | NUR ---
I spoke with Dr. Henry, she said patient is stable for transfer to [facility]-she will place the order. I called [facility] and spoke with applications systems analyst Ayush-she said the assigned rn case manager hospice Jennifer is on the other line but she will have her give me a call regarding the transfer-I let her know that I can also be paged through the hospital hydraulic hammer operator.
[2019-01-30 12:41] LABS: Magnesium 2.5 mg/dL (1.6-2.6); Phosphorus 2.9 mg/dL (2.5-4.90)
[2019-01-30] MEDS: PIPERACILLIN-TAZO 4.5GM 100 ML IV SCH ×2 (13:04→20:44)
[2019-01-30 13:36] LABS: Pre Albumin 11.3 mg/dL (20.0-40.0)
[2019-01-30] MEDS ORDERED: FURO40TA4 PO (14:47)
[2019-01-30] MEDS ORDERED: POTA-167 PO (14:51)
[2019-01-30] MEDS ORDERED: PRA25T GT (14:51)
--- NOTE | 2019-01-30 14:53 | NUR ---
Med req inputted into the computer and now updated.
--- NOTE | 2019-01-30 14:54 | NUR ---
Abdominal wound culture obtained -sent to lab.
--- NOTE | 2019-01-30 15:52 | NUR ---
Respiratory note: NOTIFIED BY TAMANNA GOLDBERG THAT PT VENT SETTINGS WAS INCREASED TO PEEP +[address] KEEN. ABG ORDERED FOR [facility] TRANSFER. ABG DRAWN, RESULTS GIVEN TO TAMANNA.
[2019-01-30] MEDS: RIVAROXABAN 20 MG TAB PO SCH (17:40)
--- NOTE | 2019-01-30 18:06 | NUR ---
SPECIALTY BED: Ordered [facility] Bariatric air bed at [facility], Reference# [id number], ETA [id number]. Please call [facility] at [phone] if needed to follow up or for any changes.
[2019-01-30] MEDS ORDERED: TPN PER PHARMACY IV NR ×16 (20:00)
--- NOTE | 2019-01-30 21:30 | NUR ---
REPORT RECEIVED FROM KUMAR CELIS RN
--- NOTE | 2019-01-30 21:40 | NUR ---
INITIAL CONTACT ASSUMED CARE OF PATIENT PATIENT APPEARS TO BE RESTING IN BED IN SEMI FOWLERS POSITION AT THIS TIME. PATIENT IS INTUBATED AND SEDATED ON FENTANYL AND VERSED. SEE IV SPREADSHEET FOR MEDICATIONS AND TITRATIONS. PATIENT IS ORIENTED TO SELF. PATIENT MOVES UPPER AND LOWER EXTREMITIES, OPENS EYES BUT DOES NOT TRACK WHEN CARE IS RENDERED. VITAL SIGNS WITHIN NORMAL LIMITS. NO S/S OF DISTRESS NOTED, NO FACIAL GRIMACE. NOTED SOFT MITTENS TO BOTH HANDS FOR SAFETY. NICHOLS CATHETER IN TACT AND DRAINING TO GRAVITY. VENTILATOR PLUGGED INTO RED OUTLET PER VAP PROTOCOL. AMBU BAG AT BEDSIDE. BED IN LOWEST LOCKED POSITION, SIDE RAILS UP TIMES 2. PATIENT IS IN FULL VIEW OF NURSES STATION. SAFETY MAINTAINED, WILL CONTINUE TO MONITOR
[2019-01-30] MEDS: ATORVASTATIN 20 MG TAB PO SCH (22:35)
--- NOTE | 2019-01-30 23:00 | NUR ---
PATIENT STATUS PATIENT AWAKE, ALERT AND ATTEMPTING TO PULL OFF SOFT MITTENS. PATIENT RE-ORIENTED TO PLACE, TIME AND SITUATION. PATIENT FOLLOWS COMMANDS AND AFTER A SHORT TIME FALLS BACK TO SLEEP
[2019-01-31] VITALS (91 sets, daily range): BP systolic 109–153; BP diastolic 54–92
[2019-01-31] MEDS: methylPREDNISolone SOD SUCC 125 MG/2 ML VL IV SCH ×5 (00:28→22:30)
[2019-01-31] MEDS: ACCU-CHEK COMFORT CURVE STRIP VI SCH ×4 (00:28→17:34)
[2019-01-31] MEDS: InsuLIN REG 1unit/0.01ml Soln (100units/ml) SC SCH ×4 (00:35→17:34)
[2019-01-31] MEDS: NOREPINEPHRINE 8 MG/250ML KIT 250 ML IV SCH (01:30)
[2019-01-31] MEDS: MIDAZOLAM DRIP 50 mg/50mL 50 ML IV SCH ×6 (01:38→20:38)
[2019-01-31] MEDS: IPRATROPIUM BROM 0.5 MG/2.5ML INH SOL NEB SCH ×6 (02:23→22:29)
[2019-01-31] MEDS: ALBUTEROL SULF 2.5 MG/0.5ML(0.5%) NEB SOLN NEB SCH ×6 (02:23→22:29)
[2019-01-31] MEDS: VANCOMYCIN 1,500 MG in D5W 5% 250 ML IV SCH ×2 (02:27→14:47)
[2019-01-31 03:14] LABS: Basophils # (auto) 0 uL; Basophils % (auto) 0.1 % (0.0-2.0); Eosinophils # (auto) 0 uL; Hematocrit 41.3 % (41.0-53.0); Hemoglobin 12.9 g/dL (13.5-17.5); Lymphocytes # (auto) 0.4 uL; Lymphocytes % (auto) 2.9 % (10.0-50.0); Mean Corpuscular Hemoglobin 26.4 pg (28.0-32.0); Mean Corpuscular Hgb Conc. 31.2 g/dL (32.0-36.0); Mean Corpuscular Volume 84.8 fL (80.0-100.0); Monocytes # (auto) 0.6 uL; Monocytes % (auto) 4.6 % (0.0-12.0); Neutrophils # (auto) 12.4 uL; Neutrophils % (auto) 92.4 % (37.0-80.0); Nucleated Red Blood Cells % 0.1 %; Platelet Count (auto) 232 10^3/uL (140-450); Red Blood Cells 4.87 10^6/uL (4.5-5.90); Red Cell Distribution Width 18.7 % (11.8-14.3); White Blood Cell 13.4 10^3/uL (4.4-10.8)
[2019-01-31 03:39] LABS: Albumin 2.1 g/dL (3.4-5.0); Calcium 8.1 mg/dL (8.5-10.1); Magnesium 2.2 mg/dL (1.6-2.6); Potassium 3.9 mmol/L (3.5-5.1)
[2019-01-31 03:41] LABS: BUN/Creatinine Ratio 26.8
[2019-01-31 03:44] LABS: Bilirubin, Total 0.4 mg/dL (0.2-1.0); Phosphorus 2.9 mg/dL (2.5-4.90)
[2019-01-31] MEDS: PIPERACILLIN-TAZO 4.5GM 100 ML IV SCH ×3 (04:29→20:41)
[2019-01-31] MEDS: fentaNYL Drip 2500mCg/250mlNS 250 ML IV SCH ×2 (09:17→20:37)
--- NOTE | 2019-01-31 09:19 | NUR ---
FAMILY UPDATED ON PATIENT STATUS. ALL QUESTIONS AND CONCERNS ADDRESSED AT THIS TIME
[2019-01-31] MEDS: ATENOLOL 25 MG TAB PO SCH (09:51)
[2019-01-31] MEDS: FUROSEMIDE 20 MG/2 ML VIAL IV SCH (09:51)
[2019-01-31] MEDS: FAMOTIDINE INJECTION 40 MG in SODIUM CHL 0.9% 100 ML IV SCH (09:51)
--- NOTE | 2019-01-31 10:56 | NUR ---
PULMONARY CONSULT LEFT MESSAGE ON DR. FRANCISCO JAVIER CORREA
--- NOTE | 2019-01-31 11:02 | NUR ---
SPECIALTY BED PATIENT PLACED ON SPECIALTY BED
--- NOTE | 2019-01-31 11:59 | NUR ---
I faxed to [facility] todays d/c order. I still need updated transfer summary to fax to [facility]
--- NOTE | 2019-01-31 13:08 | NUR ---
spoke to Hanna at [facility] and she stated they are working to get bed at one of their facilities and transfer should happen today
--- NOTE | 2019-01-31 13:45 | NUR ---
WOUND PHOTO PHOTO TAKEN OF BLISTER ON RIGHT UPPER FLANK AREA AND WOUND TO RIGHT BUTTOCKS
--- NOTE | 2019-01-31 14:32 | NUR ---
[facility] PER CLOTHES PRESSER AT [facility], THEIR PHYSICIAN DOESN'T FEEL COMFORTABLE TO ACCEPT PATIENT UNTIL PEEP IS [address] MCINTYRE TO SEE PATIENT FOR VENTILATOR MANAGEMENT
--- NOTE | 2019-01-31 15:54 | NUR ---
CLINIMIX STARTED PER PHARMACY PROTOCOL
[2019-01-31] MEDS ORDERED: AMINO ACID INFUSION IN D10W 1,000 ML IV SCH (16:00)
--- NOTE | 2019-01-31 16:37 | NUR ---
LUZ AT BEDSIDE UPDATED ON PATIENT STATUS. ALL QUESTIONS AND CONCERNS ADDRESSED AT THIS TIME
[2019-01-31] MEDS: RIVAROXABAN 20 MG TAB PO SCH (17:33)
--- NOTE | 2019-01-31 17:46 | NUR ---
DR. MCINTYRE AT BEDSIDE
[2019-01-31] MEDS ORDERED: TPN PER PHARMACY IV NR ×11 (20:00)
--- NOTE | 2019-01-31 20:30 | NUR ---
Patient bathe/linen change Patient given complete bath. Skin integrity assessed for any changes. Linens changed. Patient repositioned for comfort. Gown changed, mouth care and suction. Patient tolerated well. Safety maintained, will continue to monitor
[2019-01-31] MEDS: ATORVASTATIN 20 MG TAB PO SCH (22:30)
[2019-02-01] VITALS (61 sets, daily range): BP systolic 110–149; BP diastolic 58–88
[2019-02-01] MEDS: ACCU-CHEK COMFORT CURVE STRIP VI SCH ×4 (00:36→18:16)
[2019-02-01] MEDS: InsuLIN REG 1unit/0.01ml Soln (100units/ml) SC SCH ×4 (00:39→18:15)
[2019-02-01] MEDS: NOREPINEPHRINE 8 MG/250ML KIT 250 ML IV SCH (01:30)
[2019-02-01] MEDS: ALBUTEROL SULF 2.5 MG/0.5ML(0.5%) NEB SOLN NEB SCH ×5 (02:14→18:04)
[2019-02-01] MEDS: IPRATROPIUM BROM 0.5 MG/2.5ML INH SOL NEB SCH ×5 (02:14→18:04)
[2019-02-01] MEDS ORDERED: PIPERACILLIN-TAZOB 3.375GM 100 ML IV ONE (04:19)
[2019-02-01] MEDS: PIPERACILLIN-TAZO 4.5GM 100 ML IV SCH ×3 (04:23→20:25)
[2019-02-01] MEDS: VANCOMYCIN 1,500 MG in D5W 5% 250 ML IV SCH ×2 (04:24→15:00)
[2019-02-01 04:41] LABS: Potassium 4.2 mmol/L (3.5-5.1)
[2019-02-01] MEDS: MIDAZOLAM DRIP 50 mg/50mL 50 ML IV SCH ×5 (04:43→19:37)
[2019-02-01 04:47] LABS: Albumin 2.1 g/dL (3.4-5.0); Bilirubin, Total 0.3 mg/dL (0.2-1.0); Calcium 7.8 mg/dL (8.5-10.1); Magnesium 2.2 mg/dL (1.6-2.6); Phosphorus 2.6 mg/dL (2.5-4.90); Total Protein 5.9 g/dL (6.4-8.2)
[2019-02-01] MEDS: methylPREDNISolone SOD SUCC 125 MG/2 ML VL IV SCH ×2 (05:28→13:58)
--- NOTE | 2019-02-01 09:00 | NUR ---
SEDATION VACATION HELD DUE TO PATIENT RESPONSIVE ET FOLLOWING COMMANDS WITH VERSED AND FENTANYL AT MAX LEVELS. Addendum: 02/01/19 at 1802 by Padma Rosario RN Amended: Links added.
--- NOTE | 2019-02-01 10:31 | NUR ---
I received a page from Dr. Titus letting me know that he placed a transfer order for this patient. I called nurse Padma and asked her to fax face sheet, transfer order and today's progress notes to [phone].
[2019-02-01 10:52] LABS: Hematocrit 45.3 % (41.0-53.0); Hemoglobin 13.8 g/dL (13.5-17.5); Red Blood Cells 5.32 10^6/uL (4.5-5.90)
[2019-02-01 10:58] LABS: Mean Corpuscular Hgb Conc. 30.5 g/dL (32.0-36.0); Mean Corpuscular Volume 85.1 fL (80.0-100.0); Platelet Count (auto) 225 10^3/uL (140-450); Red Cell Distribution Width 18.3 % (11.8-14.3); White Blood Cell 12.9 10^3/uL (4.4-10.8)
[2019-02-01 11:10] LABS: Band Neutrophils % (manual) 0; Basophils % (manual) 0 (0.0-2.0); Blast Cells 0; Eosinophils % (manual) 0 (0-7); Metamyelocytes % 0; Myelocytes % 0; Promyelocytes % 0; Reactive Lymphocytes 0
[2019-02-01] MEDS: FUROSEMIDE 20 MG/2 ML VIAL IV SCH (11:20)
[2019-02-01] MEDS: ATENOLOL 25 MG TAB PO SCH (11:21)
[2019-02-01] MEDS: FAMOTIDINE INJECTION 40 MG in SODIUM CHL 0.9% 100 ML IV SCH (11:32)
[2019-02-01 11:43] LABS: Lymphocytes % (manual) 5 (10.0-50.0); Monocytes % (manual) 3 (0-12)
--- NOTE | 2019-02-01 11:49 | NUR ---
KIAN FROM [facility] PHONED ELECTRONIC PREPRESS OPERATOR - INFORMED ELECTRONIC PREPRESS OPERATOR OF BED AVAILABILITY AT [facility], STATES BED WILL BE AVAILABLE LATER THIS TONY AND [facility] [place] WILL NOTIFY ELECTRONIC PREPRESS OPERATOR OF TIME OF TRANSFER.
--- NOTE | 2019-02-01 12:01 | NUR ---
DR LINDSAY VISITS - INFORMED OF [facility]'S ACCEPTANCE OF PATIENT THIS EVENING - ALL PAPERWORK SIGNED. CLUTCH SPECIALIST INFORMED PATIENT'S MARIANA OF TRANSFER - [facility]BAL CONSENT FOR AMBULANCE TRANSFER OBTAINED VIA PHONE AND 2 RN WITNESSES.
[2019-02-01] MEDS ORDERED: SODIUM PHOSPHATES 20 MEQ in SODIUM CHL 0.9% 100 ML IV ONE (13:00)
--- NOTE | 2019-02-01 14:50 | NUR ---
WOUND CARE NOTE: New consult received from nursing. Patient previously seen by wound care team on admitted due to low Simone, intubation and wounds to left abdominal fold/groin. Patient now with an intact blister to left flank and small open wound to left hip measuring 1x1cm. Patient is to transfer to [facility]. Discussed with bedside RNPadma. RECOMMENDATIONS: Nursing to continue with previous wound/skin care orders; wound care team to continue to follow.
--- NOTE | 2019-02-01 15:19 | NUR ---
Nutrition Follow-up Notes Wt.: 145.4 kg Pt`s intubated sedated when rounded this am. per records acute on chronic resp failure. pt is currently NPO on PN support @ 54 ml.hr providing 1330 kcals and 70 gm proteins 1050 NCP. pt with inadequate PN support as it meets 53-66% kcals and 65-87% proteins. pt with high gastric drainage noted Est. Needs: 2000 kcal to 2500 kcal (12-15 kcal/kgBW), 80 gms to 107 gms pro (1.2-1.6 gms/kgIBW: 67 kg). Will continue to monitor pertinent labs and reassess nutrient need prn Labs: ALB 2.1 L, BUN 20 H, CA 7.8 L, GLU 338 H Skin: Simone scale 13 mod risk, pt with multiple skin tear and blisters per RN doc GI: Pt's no bowel activity reported with 175 ml gastric drainage per clinical documentation nurse. PES: Altered nutrition related lab values r/t current/chronic medical condition aeb hyperglycemia, elev. BUN, low LFTs, hypocalcemia and severe hypoalbuminemia Increased nutrient needs r/t current chronic medical condition aeb intubated, sedated, wound healing, severe hypoalbuminemia, NPO Obesity r/t excessive PO intake aeb 248% IBW, BMI 57.6 kg/m2 and increased body adiposity Will continue to monitor NPO status, PN tolerance, skin status, pertinent labs and weight trend. F/u in 2 to 3 days. Rec.: 1.) If still NPO with GIT's working, consider to resume EN support at lower rate of Glucerna 1.2 Mikel with @ 70 ml/hr goal rate as tolerated if medically appropriate. 2.) If Albumin continues trending down, consider Prostat 1 pkt BID. 3.) Consider daily MVI with minerals and Asc acid 500 mgs BID prn. 4.) If remains NPO with GIT's not working, advance PN support to meet > 75% of needs. 5.) Advance gradually to oral diet when medically appropriate. 6.) Refer to CDE/RD for further nutrition educ. and weight monitoring upon discharge. 7.) Continue current plan of care.
--- NOTE | 2019-02-01 17:06 | NUR ---
RECEIVED CALL FROM [facility] - TRANSFER INFO GIVEN TO MEDICAL PAYMENT POSTER. MEDICAL PAYMENT POSTER PHONED PATIENT'S AND INFORMED HER OF TRANSFER TIME AND PLACE.
[2019-02-01] MEDS: RIVAROXABAN 20 MG TAB PO SCH (17:46)
--- NOTE | 2019-02-01 18:32 | NUR ---
PATIENT'S VISITS - CONDITION ET POC DISCUSSED - VERBALIZED UNDERSTANDING.
--- NOTE | 2019-02-01 18:33 | NUR ---
CRITICAL CARE ANESTHESIOLOGIST AND CRITICAL CARE PHONES - REPORT GIVEN.
--- NOTE | 2019-02-01 18:46 | NUR ---
REPORT CALLED TO VERNON NOLEN AT [facility].
[2019-02-01] MEDS: fentaNYL Drip 2500mCg/250mlNS 250 ML IV SCH (19:37)
[2019-02-01] MEDS ORDERED: TPN PER PHARMACY IV NR ×23 (20:00)
--- NOTE | 2019-02-01 20:20 | NUR ---
CALL RECEIVED FROM [facility] CALLED FOR UPDATED VITALS AND ETA FOR TRANSFER TEAM ALL QUESTIONS AND CONCERNS WERE ADDRESSED
--- NOTE | 2019-02-01 20:30 | NUR ---
WOUND PICS TAKEN UPDATED WOUND PICS TAKEN PRIOR TO DISCHARGE PATIENT GIVEN EVERT CARE
--- NOTE | 2019-02-01 20:39 | NUR ---
[facility]ER[facility] ARRIVED TO TRANSFER PATIENT TO [facility]
--- NOTE | 2019-02-01 21:28 | NUR ---
PT TRANSFERRED TO ANOTHER HOSPITAL Order obtained for transfer of MARCE DONAHUE to [facility]. Report called/given to YassineICU-RN. Report given to EMS transport team. Medication reconciliation form completed and copy given to patient. Transported via [facility] along with copied chart and imaging films/disk and all personal belongings. No distress noted on time of departure. Family notified of destination and room number, verbalized understanding.
--- NOTE | 2019-02-01 21:37 | NUR ---
[facility] SWABS SENT TO LAB PATIENT NARES SWABBED FOR MRSA, FOR DISCHARGE Addendum: 02/01/19 at 2224 by Sirena Foster RN TIME SWABS WERE SENT WAS 2030
== END 2019-02-01 21:26 | disposition short-term general hospital (02) | DRG 208 ==
LOC: EDBD 23:10 → ER 23:17 → TELE 23:18 → ICU WEST 01-29 08:42
PROVIDERS: ADMIT Nurse Practitioner; ATTEND Internal Medicine Nephrology
PROC: 5A09357 Assistance with Respiratory Ventilation, Less than 24 Consecutive Hours, Continuous Positive Airway Pressure (ICD-10-PCS; 2019-01-28)
PROC: 5A1945Z Respiratory Ventilation, 24-96 Consecutive Hours (ICD-10-PCS; principal; 2019-01-29)
PROC: 0BH17EZ Insertion of Endotracheal Airway into Trachea, Via Natural or Artificial Opening (ICD-10-PCS; 2019-01-29)
DX: J96.22 Acute and chronic respiratory failure with hypercapnia (principal); J69.0 Pneumonitis due to inhalation of food and vomit; E87.2 Acidosis; L03.311 Cellulitis of abdominal wall; J44.1 Chronic obstructive pulmonary disease with (acute) exacerbation; E66.2 Morbid (severe) obesity with alveolar hypoventilation; J96.21 Acute and chronic respiratory failure with hypoxia; D72.829 Elevated white blood cell count, unspecified; D72.823 Leukemoid reaction; I95.0 Idiopathic hypotension; J44.9 Chronic obstructive pulmonary disease, unspecified; E78.5 Hyperlipidemia, unspecified; E11.9 Type 2 diabetes mellitus without complications; I11.0 Hypertensive heart disease with heart failure; I50.9 Heart failure, unspecified; I34.0 Nonrheumatic mitral (valve) insufficiency; Z99.81 Dependence on supplemental oxygen; Z90.49 Acquired absence of other specified parts of digestive tract
CPT/HCPCS: 31500; 36415; 36556; 36600; 71045; 80053; 80202; 81001; 82040; 82805; 82962; 83605; 83735; 83880; 84100; 84146; 84478; 84484; 85007; 85025; 85027; 85379; 85610; 85730; 87040; 87070; 87077; 87081; 87186; 87205; 93005; 93306; 93970; 94002; 94003; 94640; 94660; 96361; 96365; 96367; 96375; G0378; J0330; J1815; J1956; J2250; J2543; J3490; J7060; J7131